=== PATIENT | female | born 1985 | race African-American/Black ===

== ENCOUNTER → 2016-09-18 14:10 | Outpatient (CLI) | payer MEDICAID ==
[2012-12-23 06:11] VITALS: BMI 36.6
== END | disposition home or self-care (01) ==
LOC: D.US 14:10
DX: N63 Unspecified lump in breast (principal)

== ENCOUNTER → 2020-05-14 19:33 | Outpatient (CLI) | payer OTHER ==
[2012-12-23 06:11] VITALS: BMI 36.6
[~2020-05-14 19:33] MED LIST: HYDROCODON-ACE1 EA10 PO
[2020-05-17 06:55] VITALS: BMI 39.0
== END | disposition home or self-care (01) ==
LOC: D.LABREF 19:33
PROVIDERS: ATTEND Surgery
DX: Z11.59 Encounter for screening for other viral diseases (principal)

== ENCOUNTER 2020-05-17 05:38 | Day surgery (SDC) | payer OTHER ==
[~2020-05-17] VITALS: Ht 160 cm; Wt 99.8 kg
--- NOTE | ~2020-05-17 | OP ---
PATIENT NAME: SALBADOR FERRARI MEDICAL RECORD: [id number] :87 LOCATION:D.OPS ADMISSION DATE: SURGEON: DAVID KNOX MD DATE OF OPERATION: 05/17/2020 PREOPERATIVE DIAGNOSES: 1. Biliary dyskinesia. 2. Obesity with a BMI of 39. POSTOPERATIVE DIAGNOSES: 1. Biliary dyskinesia. 2. Obesity with a BMI of 39. PROCEDURE: Laparoscopic cholecystectomy. SURGEON: David Knox MD REPORT OF PROCEDURE: The patient's abdomen was prepped and draped in sterile fashion. A cutdown was made on the superior aspect of the umbilicus, 0 Vicryls were placed in the fascia bilaterally and the fascia was incised with 15-blade. I then bluntly entered the peritoneal cavity and placed a 12-mm Renato port. Under direct visualization, a 5-mm trocar was placed in the epigastrium and two more 5-mm trocars were placed in the right subcostal region. The gallbladder was grasped and elevated. The gallbladder was in an unusual position. It was not located on the right side of the liver, but located directly underneath the patient's falciform ligament. I was able to elevate this and take down any adhesions that were present. The cystic artery and cystic duct were dissected free and had my critical view of safety. These 2 tubes were clipped proximally and distally and ligated in standard fashion. The gallbladder was then taken off the liver bed using electrocautery and placed in the right upper quadrant. Any bleeding from the liver bed was then treated with electrocautery. We irrigated out the right upper quadrant. The ports and insufflation were then removed and the gallbladder was taken out through the umbilicus. The umbilical fascia was closed with interrupted 0 Vicryls times 3. The wounds were then irrigated out with normal saline and infused with 10 mL of 0.25% Marcaine with epinephrine. The skin incisions were all closed with subcutaneous 5-0 Monocryl and dressed appropriately. COMPLICATIONS: None. CONDITION: Stable. ANESTHESIA: General endotracheal and local. BLOOD LOSS: Minimal. TRANSINT:[id number] Voice Confirmation ID: [id number] DOCUMENT ID: [id number] OPERATIVE REPORT [id number] FERRARISHAYY HENRYRIE Karine DAVID KNOX MD CC: MILTON MUIR [id number] DICTATION DATE: 05/17/20 [facility] [place] COMPENSATION BUSINESS PARTNER: 05/17/20 1047 [facility] [address] [id number]
[2020-05-17 06:13] LABS: HEMATOCRIT 38.6 % (36.0-48.0); HEMOGLOBIN 12.2 g/dL (12-16); MCH 25.8 pg (26.0-34.0); MCHC 31.6 g/dL (31.0-37.0); MCV 81.6 fL (80.0-100.0); MEAN PLATELET VOLUME 9.9 fL (7.4-10.4); RBC 4.73 10x6/uL (4.00-5.40); RDW 15.3 % (11.5-14.5); WBC 7.8 10x3/uL (4.8-10.8)
[2020-05-17 06:34] LABS: CALC OSMOLALITY 278 mosm/kg (275-300); CALCIUM 8.7 mg/dL (8.5-10.1); CARBON DIOXIDE 24.3 mmol/L (21.0-32.0); CHLORIDE - SERUM 102 mmol/L (98-107); CREATININE - SERUM 0.9 mg/dL (0.6-1.3); POTASSIUM - SERUM 3.9 mmol/L (3.5-5.1); SODIUM 137 mmol/L (136-145); UREA NITROGEN 10 mg/dL (7-18); eGFR NON AFRICAN AMERICAN 76 mL/min (90-120)
[2020-05-17 06:36] LABS: HCG SERUM NEGATIVE (NEGATIVE)
[2020-05-17 06:46] LABS: GLUCOSE 198 mg/dL (74-106)
[2020-05-17 06:55] VITALS: BP 169/104; Ht 160 cm; Wt 99.8 kg
[2020-05-17] MEDS ORDERED: HYDROCODON-ACE1 EA10 PO (09:59)
--- NOTE | 2020-05-17 14:08 | NUR ---
AMBULATED TO BR WITHOUT DIFFICULTY TO VOID. ABD SOFT WITH 4 BANDAIDS CDI. RATES PAIN 3/10. IV D/C'D WITH CANNULA INTACT, PRESSURE HELD, AND DRSG PLACED. DISCHARGE INSTRUCTIONS GIVEN AND PT VERBALIZED AN UNDERSTANDING. DISCHARGED IN STABLE CONDITION AND WITHOUT C/O.
== END 2020-05-17 12:45 | disposition home or self-care (01) ==
LOC: D.OPS 05:38
PROVIDERS: Anesthesiology; ATTEND Surgery
DX: K82.8 Other specified diseases of gallbladder (principal); E66.9 Obesity, unspecified; Z68.39 Body mass index [BMI] 39.0-39.9, adult

== ENCOUNTER 2020-05-31 16:47 | Emergency (ER) | payer OTHER ==
[~2020-05-31] VITALS: Ht 233.7 cm; Wt 97.7 kg
[2020-05-31 17:09] VITALS: Ht 233.7 cm; Wt 97.7 kg
[2020-05-31] MEDS ORDERED: ULTRAM50 MG PO (17:39)
[2020-05-31 17:54] VITALS: BP 156/93
== END 2020-05-31 18:06 | disposition home or self-care (01) ==
LOC: D.ER 16:47
DX: M54.5 Low back pain (principal); V89.2XXA Person injured in unspecified motor-vehicle accident, traffic, initial encounter; Y93.9 Activity, unspecified; Y92.9 Unspecified place or not applicable; E11.9 Type 2 diabetes mellitus without complications; I10 Essential (primary) hypertension